=== PATIENT | female | born 1965 | race Caucasian/White ===

== ENCOUNTER → 2016-12-29 | Outpatient (CLI) | payer OTHER, MEDICARE ==
[~2016-12-29] MED LIST: ALBU8.5H INH; ASCO500C15 PO; BACL-1 PO; CALC600T12 PO; CARB1TAB41 PO; CETI10CA19 PO; CHOL100047 PO; CYCL-208 PO; DICY20TA54 PO; ESOM40CA24 PO; ESTR8.1S TOP; FERR-67 PO; GUAI600T PO; HYDR-3995 PO; IBUP200C62 PO; KETO10TA2 PO; LANS30CA58 PO; MOME17SP2 EA NOSTRIL; OXYC20TA PO; PAIN PUMP IV; PREG200C PO; PROM-51 PO; TRAZ-170 PO; VENL75TA4 PO; [UNRECOGNIZED DRUG - OTHER] PO
[2016-12-29 09:52] LABS: BASOPHILS % (AUTO) 0.3 % (0-2); EOSINOPHILS # (AUTO) 0.4 T/MM3 (0-0.5); EOSINOPHILS % (AUTO) 6.5 % (0-4); HCT - HEMATOCRIT 39.4 % (36-46); HGB - HEMOGLOBIN 13.4 GM/DL (12-16); IMMATURE GRANULOCYTE # (AUTO) 0.01 T/MM3 (0.00-0.03); IMMATURE GRANULOCYTE % (AUTO) 0.2 % (0.0-0.5); LYMPHOCYTES % (AUTO) 34.2 % (23-45); MEAN CORPUSCULAR HGB 33.3 UUG (26-34); MEAN CORPUSCULAR VOLUME 97.8 UM3 (80-100); MEAN PLATELET VOLUME 10.8 UM3 (9.4-12.4); MONOCYTES # (AUTO) 0.5 T/MM3 (0-0.8); NEUTROPHILS % (AUTO) 50.8 % (33-66); RED BLOOD COUNT 4.03 M/MM3 (4.00-5.20); WBC - WHITE BLOOD COUNT 5.9 T/MM3 (4.5-11.0)
[2016-12-29 10:02] LABS: ALBUMIN 3.5 G/DL (3.5-5.0); ALBUMIN/GLOBULIN RATIO 1.1 RATIO (1.1-2.2); ALKALINE PHOSPHATASE 124 U/L (38-126); ALT (SGPT) 24 U/L (9-52); ANION GAP 11 MEQ/L (5-15); AST (SGOT) 20 U/L (14-36); BUN/CREATININE RATIO 22 RATIO (6-26); CALCIUM 8.9 MG/DL (8.4-10.2); CHLORIDE 105 MEQ/L (98-107); CO2 - CARBON DIOXIDE 31 MEQ/L (22-30); CREATININE 0.5 MG/DL (0.7-1.2); GLOMERULAR FILTRATION RATE 130; GLUCOSE 97 MG/DL (65-110); POTASSIUM 3.9 MEQ/L (3.6-5); SODIUM 147 MEQ/L (134-144); TOTAL PROTEIN 6.7 G/DL (6.3-8.2)
[2016-12-29 10:10] LABS: IGA - IMMUNOGLOBULIN A 714.84 MG/DL (70-400); IGG - IMMUNOGLOBULIN G 693.56 MG/DL (700-1600); IGM - IMMUNOGLOBULIN M 25.63 MG/DL (40-230)
== END ==
LOC: LAB 09:18
PROVIDERS: ATTEND Internal Medicine Medical Oncology
DX: C90.00 Multiple myeloma not having achieved remission (principal)
CPT/HCPCS: 36415; 80053; 82232; 82784; 82785; 83883; 84155; 84165; 85025; 86334

== ENCOUNTER 2017-10-14 10:43 | Observation (INO) ==
--- OUTSIDE RECORDS SUMMARY | 2017-10-14 11:01 | External Medical Summary | Clinical Summary ---
:1965 Author Organization [facility] [place] Address [address] [place] [address] Phone Care Team Providers Name Role Phone Unavailable Primary Care Provider Unavailable Source Comments Some departments are not documenting in the electronic medical record. If you do not see the information that you expected, contact Release of Information in the Health Information Management department at [phone] for further assistance in locating additional records.[facility] [place] Allergies Active Allergy Reactions Severity Noted Date Comments Sulfur SEE COMMENTS 09/11/2013 Vaginal and Rectal itching Current Medications Prescription Sig. Disp. Refills Start Date End Date Status HYDROMORPHONE HCL Take by mouth as Active (DILAUDID PO) Needed. bupiv esomeprazole DR(+) Take 40 mg by Active (NEXIUM) 40 mg capsule mouth every morning. escitalopram (LEXAPRO) 20 Take 20 mg by Active mg tablet mouth daily. zolpidem CR(+) (AMBIEN CR) Take 12.5 mg by Active 12.5 mg tablet mouth at bedtime as needed. PROMETHAZINE HCL Take by mouth as Active (PROMETHAZINE PO) Needed. Fluticasone Furoate Apply 2 Sprays to Active (VERAMYST) 27.5 each nostril as mcg/actuation spsn directed daily. budesonide(+) (RHINOCORT Apply 1 [place] to Active AQUA) 32 mcg/actuation each nostril as nasal spray directed daily. cyclobenzaprine (FLEXERIL) Take 10 mg by Active 10 mg tablet mouth three times daily as needed. HYDROcodone-acetaminophen( Take 1 Tab by Active +) (LORTAB 10/500) 10-500 mouth every 6 mg tablet hours as needed. oxyCODone SR (OXYCONTIN) Take 20 mg by Active 20 mg tablet mouth every 12 hours carbidopa(+) (LODOSYN) 25 Take 25 mg by Active mg tab mouth daily. baclofen (LIORESAL) 10 mg Take 10 mg by Active tablet mouth three times daily. diazepam (VALIUM) 5 mg Take 5 mg by mouth Active tablet every 6 hours as needed. ascorbic acid (VITAMIN-C) Take 500 mg by Active 500 mg tablet mouth daily. bumetanide (BUMEX) 1 mg Take 1 mg by mouth Active tablet daily. ketorolac (TORADOL) 10 mg Take 10 mg by Active tablet mouth every 6 hours as needed. dicyclomine (BENTYL) 20 mg Take 20 mg by Active tablet mouth every 6 hours. Active Problems Problem Noted Date Vitamin D deficiency 10/22/2013 MGUS (monoclonal gammopathy of unknown significance) 09/11/2013 Social History Tobacco Use Types Packs/Day Years Used Date Never Assessed Sex Assigned at Date Recorded Not on file Last Filed Vital Signs Vital Sign Reading Time Taken Blood Pressure 140/80 10/16/2014 3:42 PM [employer] Pulse 77 09/11/2013 11:57 AM [employer] Temperature 36.5 C (97.7 F) 09/11/2013 11:57 AM [employer] Respiratory Rate - - Oxygen Saturation 91% 09/11/2013 11:57 AM [employer] Inhaled Oxygen Concentration - - Weight 80.3 kg (177 lb) 10/16/2014 3:42 PM [employer] Height 154.9 cm (5' 1") 10/16/2014 3:42 PM [employer] Body Mass Index 33.44 10/16/2014 3:42 PM [employer] Plan of Treatment Health Maintenance Due Date Last Done Comments HEPATITIS C SCREENING 1965 PHYSICAL (COMPREHENSIVE) EXAM 1971 PERTUSSIS VACCINE 1975 TETANUS VACCINE 1981 CERVICAL CANCER SCREENING 1994 BREAST CANCER SCREENING 2004 COLORECTAL CANCER SCREENING 2014 INFLUENZA VACCINE 05/08/2017
[2017-10-14] MEDS ORDERED: NALOXONE 0.4 MG/ML INJECTION IVP ONE (11:03)
[2017-10-14] MEDS ORDERED: NS 1,000 ML IV ONE (11:03)
[2017-10-14] MEDS: SALINE FLUSH 10ml SYRINGE IVF PRN ×2 (11:12→12:19)
--- NOTE | 2017-10-14 13:09 | Emergency Department Report ---
General Adult HPI - General Chief complaint: Medical Emergency Stated complaint: withdrawls Time Seen by Provider: 10/14/17 10:55 - History of Present Illness HPI narrative: 52-year-old female presents sedated via EMS. Patient's called for help as he felt like she was withdrawing and acting out with agitated symptoms. When EMS arrived, she was trying to bite them and fight with them and they ultimately gave her 50 mg of ketamine IM. She also required 2 mg of Ativan after that given IV. She takes significant narcotics for chronic pain from back surgeries. By best recollection after talking with her primary care provider, it sounds like she takes hydrocodone 10 mg tablet, 6 tablets per day. Oxycodone 20 mg tablet at bedtime. She also has a morphine pump of which dosing we're uncertain, but impression is that it is a fairly high dose. She does not respond to questioning, does withdraw to noxious stimuli. She is protecting her airway and does not require intubation at this time. Oxygen saturation 90-91% on room air. EMS felt that she responded better to the Ativan that she stated to the ketamine. They were given her medications by her , but there are no narcotic bottles in with those medications. states he thinks that she ran out yesterday as she sat in her recliner all day and did not get up except one trip to the bathroom. He states she's fairly secretive with her medications and does not let him see her take them and so he is uncertain how much or how often she is taking the pain medication. She did have an overdose approximately a year ago and required a stay in the ICU for recovery. - Related Data Home Medications Medication Instructions Recorded Confirmed Ketorolac Tromethamine 10 mg PO Q6H PRN #0 10/25/15 10/14/17 Lansoprazole 30 mg PO DAILY #0 10/25/15 10/14/17 Venlafaxine [Effexor] 150 mg PO AM #0 10/25/15 10/14/17 Cetirizine HCl [Zyrtec] 10 mg PO DAILY #0 10/06/16 10/14/17 Mometasone Furoate [Nasonex] 2 spray EA NOSTRIL DAILY #0 10/06/16 10/14/17 ondansetron HCl 8 mg tablet 8 mg PO Q8H PRN 07/26/17 10/14/17 trazodone 100 mg tablet 100 mg PO HS tab 07/26/17 10/14/17 Baclofen [Lioresal] 10 mg PO TID PRN 10/14/17 10/14/17 Dicyclomine [Bentyl] 20 mg PO QID 10/14/17 10/14/17 Guaifenesin [Mucinex] 400 mg PO PRN PRN 10/14/17 10/14/17 Hydrocortisone [Procto-Med Hc] 1 applicatio TOP PRN 10/14/17 10/14/17 Lactobacillus Acidophilus 1 each PO DAILY 10/14/17 10/14/17 [Probiotic] Meclizine [Antivert] 25 mg PO PRN 10/14/17 10/14/17 Melatonin/Pyridoxine HCl (B6) 10 mg PO HS 10/14/17 10/14/17 [Melatonin 10 mg Tablet] Oxycodone CR [Oxycontin] 20 mg PO TID PRN 10/14/17 10/14/17 Ranitidine [Zantac] 150 mg PO PRN 10/14/17 10/14/17 Venlafaxine [Effexor] 75 mg PO HS 10/14/17 10/14/17 Previous Rx's Medication Instructions Recorded carbidopa ER 25 mg-levodopa 100 mg 1 tab PO TID #450 tab 07/26/17 tablet,extended release Lyrica (pregabalin) 200 mg capsule 200 mg PO BID #60 cap 08/16/17 Allergies Allergy/AdvReac Type Severity Reaction Status Date / Time gabapentin Allergy Severe SWELLING Verified 10/14/17 11:12 adhesive Allergy Unknown Verified 10/14/17 11:12 Sulfa (Sulfonamide Allergy Unknown vaginal Verified 10/14/17 11:12 Antibiotics) and rectal itching Review of Systems Limitations: ROS unobtainable due to patient's medical condition PFSH Patient Stated Medical History Peripheral Neuropathy Yes Heart Murmur Yes Asthma Yes Bronchitis Yes Pneumonia Yes Sleep Apnea Yes Gastroesophageal Reflux Yes Disease Other GI Yes: IBS Other Hematologic Yes: MULTIPLE MYELOMA Other Musculoskeletal Yes: NERVE STIMULATOR PLACEMENT MRSA Yes: IN BREASTS-2016 Shingles Yes Other Infectious Yes: MOHS EXCISION Other Yes: Chronic pain Depression Yes Surgical History: 1. Tonsillectomy in 1982 or 1983 at [place], [place]. 2. Appendectomy in 1982 or 1983 at [facility] at [place], [place]. 3. Right carpal tunnel release operation in [address] An at [facility] at [place], [place]. 4. Primary section in 1988 at [facility] at [place], [place]. 5. Repeat in 1992 at [facility] at [place], [place]. 6. Operation at [facility] in 2001 or [address] [facility] at [place], [place]. 7. Laparoscopic cholecystectomy operation in May [address] Wu at [facility] at [place], [place]. 8. Operation at back in July 2005 at the [facility] at [place], [place]. 9. Total abdominal hysterectomy and left salpingo-oophorectomy in May [address] Denton at [facility] at [place], [place]. 10. Redo L4 and L5 laminectomies and L5-S1 interbody and instrumented fusion in September [address] Russell Slaetr at the [facility] at [place], [place]. 11. Esophagogastroduodenoscopy with biopsies on 02/07/[address] Cali at [facility] at [place], [place]. CT test study was negative. Duodenal biopsy showed mild chronic duodenitis. 12. [address] nerve stimulator at back, operations to revise nerve stimulator and then operation to place pain pump at right lower quadrant of abdomen in 2007 at the [facility] at [place], [place]. 13. Laparoscopic gastric bypass for weight loss operation in June [address] Mario Alberto Archuleta at [facility] at [place], [place]. 14. Turbinoplasty at the nose in December [address] Kate at his office at [place], [place]. 15. Septoplasty and bilateral inferior turbinoplasty on 03/25/[address] Augustin Kate at [facility] at [place], [place]. Postoperative diagnoses were chronic sinusitis, septal deviation and turbinate hypertrophy. 16. Bronchoscopy with biopsies on 10/29/2013. The patient cannot recall where this was performed. 17. Replacement of pain pump at right lower quadrant of abdomen in June 2015 at [facility] [place], [place]. 18. 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 Whitlock at [facility] at [place], [place]. 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 19. Incision and drainage with Pulsavac and sharp debridement of right and left breasts and suture removal at left ala and left lateral face on 05/15/[address] Whitlock at [facility] at [place], [place]. One postoperative diagnosis was open wounds at left and right breasts status post incision and drainage of MRSA abscesses. 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 - Social History Smoking status: Current every day smoker Substance use type: opiates, painkillers Physical Exam - Limitations Limitations: altered mental status - General General appearance: obtunded - Normal Exams: Head:: Normocephalic without trauma Chest/Respirations:: Clear all dixon, with good airflow, and symmetry bilaterally Cardiovascular:: Regular rate and rhythm, without murmur or gallop, Pulses 2+ all extremities, capillary refill, <2 seconds all extremities Abdomen:: Bowel sounds positive, soft, non-tender, non-distended, no hepatosplenomegaly, masses or bruits noted - Neurological Exam Neurological exam: Present: reflexes normal. Absent: alert, oriented X3 Course Vital Signs Temperature 98.6 F 10/14/17 10:43 Pulse Rate 91 10/14/17 10:43 Respiratory Rate 15 10/14/17 10:43 Blood Pressure 135/84 10/14/17 10:43 Pulse Oximetry 100 10/14/17 10:43 Temperature 98.6 F 10/14/17 10:43 Pulse Rate 80 10/14/17 12:30 Respiratory Rate 24 10/14/17 12:30 Blood Pressure 135/84 10/14/17 10:43 Pulse Oximetry 91 10/14/17 12:30 Medical Decision Making - MDM Narrative Medical decision making narrative: Iv placed by EMS. Fluids continued with 1 liter NS bolus. Pt evaluated and vitals reasonable. She did not respond to normal stimulus, required noxious stimuli to give any response, and then fell immediately back to sleep. 0.4mg Narcan given and pt became agitated until it wore off. Pupils were dilated and sluggish, but responsive equally to light. She began speaking and singing nonsense words. She seemed to be getting more agitated and was given 1 mg of Ativan IV. Labs ordered. CBC CMP within reason, urine drug screen was positive for opiates /oxycodone. CT head is negative as is CT C-spine. Patient is still somnolent and calm at this time. I spoke with hospitalist and discussed the case. Patient is appropriate for admission and will be placed ICU observation. - Lab Data Result diagrams: 10/14/17 11:04 10/14/17 11:04 Lab Results 10/14/17 10/14/17 10/14/17 Range/Units 11:00 11:04 11:04 WBC 6.2 (4.5-11.0) T/MM3 RBC 4.21 (4.00-5.20) M/MM3 Hgb 13.8 (12-16) GM/DL Hct 40.6 (36-46) % MCV 96.4 (80-100) UM3 MCH 32.8 (26-34) UUG MCHC 34.0 (31-37) GM/DL RDW Std Deviation 43.0 (36.9-50.2) FL Plt Count 129 L (130-400) T/MM3 MPV 11.9 (9.4-12.4) UM3 Immature Gran % (Auto) 0.2 (0.0-0.5) % Neut % (Auto) 67.3 H (33-66) % Lymph % (Auto) 22.7 L (23-45) % Wayne % (Auto) 9.4 H (0-9.0) % Eos % (Auto) 0.2 (0-4) % Baso % (Auto) 0.2 (0-2) % Neut # (Auto) 4.2 (1.8-7.7) T/MM3 Lymph # (Auto) 1.4 (1-4.8) T/MM3 Wayne # (Auto) 0.6 (0-0.8) T/MM3 Eos # (Auto) 0.0 (0-0.5) T/MM3 Baso # (Auto) 0.0 (0-0.2) T/MM3 Abs Immat Gran (auto) 0.01 (0.00-0.03) T/MM3 APTT (24-36) SEC ABG pH 7.580 H (7.350-7.450) ABG pCO2 27 L (34-45) MMHG ABG pO2 82 (80-100) MMHG ABG HCO3 25 (22-26) MEQ/L ABG Total CO2 26.1 (23-27) MEQ/L ABG O2 Saturation 98.0 (95.0-98.0) % ABG Base Excess 4.2 H (-2.0-2.0) MMOL/L O2 Delivery Method Room air FiO2 % 21 Turbidity < 20 (0-20) Sodium 145 H (134-144) MEQ/L Potassium 3.9 (3.6-5) MEQ/L Chloride 108 H (98-107) MEQ/L Carbon Dioxide 28 (22-30) MEQ/L Anion Gap 9 (5-15) MEQ/L BUN 10.0 (7-17) MG/DL Creatinine 0.5 L (0.7-1.2) MG/DL GFR Calculation 129 BUN/Creatinine Ratio 20 (6-26) RATIO Glucose 102 (65-110) MG/DL Calculated Osmolality 278 (261-280) MOSM/KG Calcium 9.2 (8.4-10.2) MG/DL Total Bilirubin 0.70 (0.20-1.30) MG/DL Icterus Index < 2 (0-7) AST 32 (14-36) U/L ALT 38 (9-52) U/L Alkaline Phosphatase 163 H (38-126) U/L Ammonia < 9 L (9-33) UMOL/L Creatine Kinase 58 (30-135) U/L Troponin I < 0.012 (0-0.12) ng/ml Total Protein 7.2 (6.3-8.2) G/DL Albumin 3.8 (3.5-5.0) G/DL Globulin 3.4 (2.4-3.6) G/DL Albumin/Globulin Ratio 1.1 (1.1-2.2) RATIO TSH 1.05 (0.47-4.68) MIU/L Specimen Hemolysis < 15 (0-25) Ur Collection Type Urine Color (YELLOW) Urine Clarity Urine pH (5.0-8.0) Ur Specific [place] (1.015-1.025) Urine Protein (NEGATIVE) Urine Glucose (UA) (NEGATIVE) Urine Ketones (NEGATIVE) Urine Occult Blood (NEGATIVE) Urine Nitrate (NEGATIVE) Urine Bilirubin (NEGATIVE) Urine Urobilinogen (NORMAL) EU/DL Ur Leukocyte Esterase (NEGATIVE) Urinalysis Comment Urine Test (Negative) Salicylates < 1.0 L (2-20) MG/DL Urine Opiates Screen ng/mL Ur Oxycodone Screen ng/mL Urine Methadone Screen ng/mL Ur Propoxyphene Screen ng/mL Acetaminophen < 10 L (10-30) UG/ML Ur Barbiturates Screen ng/mL U Tricyclic Antidepress ng/mL Ur Phencyclidine Scrn ng/mL Ur Amphetamines Screen ng/mL U Methamphetamines Scrn ng/mL U Benzodiazepines Scrn ng/mL Urine Cocaine Screen ng/mL U Cannabinoids Screen ng/mL Ur Drug Screen Confirm Alcohol, Quantitative <10 (<10) MG/DL 10/14/17 10/14/17 10/14/17 Range/Units 11:04 11:36 11:36 WBC (4.5-11.0) T/MM3 RBC (4.00-5.20) M/MM3 Hgb (12-16) GM/DL Hct (36-46) % MCV (80-100) UM3 MCH (26-34) UUG MCHC (31-37) GM/DL RDW Std Deviation (36.9-50.2) FL Plt Count (130-400) T/MM3 MPV (9.4-12.4) UM3 Immature Gran % (Auto) (0.0-0.5) % Neut % (Auto) (33-66) % Lymph % (Auto) (23-45) % Wayne % (Auto) (0-9.0) % Eos % (Auto) (0-4) % Baso % (Auto) (0-2) % Neut # (Auto) (1.8-7.7) T/MM3 Lymph # (Auto) (1-4.8) T/MM3 Wayne # (Auto) (0-0.8) T/MM3 Eos # (Auto) (0-0.5) T/MM3 Baso # (Auto) (0-0.2) T/MM3 Abs Immat Gran (auto) (0.00-0.03) T/MM3 APTT 34.7 (24-36) SEC ABG pH (7.350-7.450) ABG pCO2 (34-45) MMHG ABG pO2 (80-100) MMHG ABG HCO3 (22-26) MEQ/L ABG Total CO2 (23-27) MEQ/L ABG O2 Saturation (95.0-98.0) % ABG Base Excess (-2.0-2.0) MMOL/L O2 Delivery Method FiO2 % Turbidity (0-20) Sodium (134-144) MEQ/L Potassium (3.6-5) MEQ/L Chloride (98-107) MEQ/L Carbon Dioxide (22-30) MEQ/L Anion Gap (5-15) MEQ/L BUN (7-17) MG/DL Creatinine (0.7-1.2) MG/DL GFR Calculation BUN/Creatinine Ratio (6-26) RATIO Glucose (65-110) MG/DL Calculated Osmolality (261-280) MOSM/KG Calcium (8.4-10.2) MG/DL Total Bilirubin (0.20-1.30) MG/DL Icterus Index (0-7) AST (14-36) U/L ALT (9-52) U/L Alkaline Phosphatase (38-126) U/L Ammonia (9-33) UMOL/L Creatine Kinase (30-135) U/L Troponin I (0-0.12) ng/ml Total Protein (6.3-8.2) G/DL Albumin (3.5-5.0) G/DL Globulin (2.4-3.6) G/DL Albumin/Globulin Ratio (1.1-2.2) RATIO TSH (0.47-4.68) MIU/L Specimen Hemolysis (0-25) Ur Collection Type Urine, catheter Urine Color Yellow (YELLOW) Urine Clarity Clear Urine pH 8.5 A (5.0-8.0) Ur Specific [place] 1.010 L (1.015-1.025) Urine Protein Trace A (NEGATIVE) Urine Glucose (UA) Negative (NEGATIVE) Urine Ketones 1+ A (NEGATIVE) Urine Occult Blood Trace-intact (NEGATIVE) Urine Nitrate Negative (NEGATIVE) Urine Bilirubin Negative (NEGATIVE) Urine Urobilinogen 2.0 (NORMAL) EU/DL Ur Leukocyte Esterase Negative (NEGATIVE) Urinalysis Comment Microscopic not ind. Urine Test Negative (Negative) Salicylates (2-20) MG/DL Urine Opiates Screen ng/mL Ur Oxycodone Screen ng/mL Urine Methadone Screen ng/mL Ur Propoxyphene Screen ng/mL Acetaminophen (10-30) UG/ML Ur Barbiturates Screen ng/mL U Tricyclic Antidepress ng/mL Ur Phencyclidine Scrn ng/mL Ur Amphetamines Screen ng/mL U Methamphetamines Scrn ng/mL U Benzodiazepines Scrn ng/mL Urine Cocaine Screen ng/mL U Cannabinoids Screen ng/mL Ur Drug Screen Confirm Alcohol, Quantitative (<10) MG/DL 10/14/17 10/14/17 Range/Units 11:36 11:36 WBC (4.5-11.0) T/MM3 RBC (4.00-5.20) M/MM3 Hgb (12-16) GM/DL Hct (36-46) % MCV (80-100) UM3 MCH (26-34) UUG MCHC (31-37) GM/DL RDW Std Deviation (36.9-50.2) FL Plt Count (130-400) T/MM3 MPV (9.4-12.4) UM3 Immature Gran % (Auto) (0.0-0.5) % Neut % (Auto) (33-66) % Lymph % (Auto) (23-45) % Wayne % (Auto) (0-9.0) % Eos % (Auto) (0-4) % Baso % (Auto) (0-2) % Neut # (Auto) (1.8-7.7) T/MM3 Lymph # (Auto) (1-4.8) T/MM3 Wayne # (Auto) (0-0.8) T/MM3 Eos # (Auto) (0-0.5) T/MM3 Baso # (Auto) (0-0.2) T/MM3 Abs Immat Gran (auto) (0.00-0.03) T/MM3 APTT (24-36) SEC ABG pH (7.350-7.450) ABG pCO2 (34-45) MMHG ABG pO2 (80-100) MMHG ABG HCO3 (22-26) MEQ/L ABG Total CO2 (23-27) MEQ/L ABG O2 Saturation (95.0-98.0) % ABG Base Excess (-2.0-2.0) MMOL/L O2 Delivery Method FiO2 % Turbidity (0-20) Sodium (134-144) MEQ/L Potassium (3.6-5) MEQ/L Chloride (98-107) MEQ/L Carbon Dioxide (22-30) MEQ/L Anion Gap (5-15) MEQ/L BUN (7-17) MG/DL Creatinine (0.7-1.2) MG/DL GFR Calculation BUN/Creatinine Ratio (6-26) RATIO Glucose (65-110) MG/DL Calculated Osmolality (261-280) MOSM/KG Calcium (8.4-10.2) MG/DL Total Bilirubin (0.20-1.30) MG/DL Icterus Index (0-7) AST (14-36) U/L ALT (9-52) U/L Alkaline Phosphatase (38-126) U/L Ammonia (9-33) UMOL/L Creatine Kinase (30-135) U/L Troponin I (0-0.12) ng/ml Total Protein (6.3-8.2) G/DL Albumin (3.5-5.0) G/DL Globulin (2.4-3.6) G/DL Albumin/Globulin Ratio (1.1-2.2) RATIO TSH (0.47-4.68) MIU/L Specimen Hemolysis (0-25) Ur Collection Type Urine Color (YELLOW) Urine Clarity Urine pH (5.0-8.0) Ur Specific [place] (1.015-1.025) Urine Protein (NEGATIVE) Urine Glucose (UA) (NEGATIVE) Urine Ketones (NEGATIVE) Urine Occult Blood (NEGATIVE) Urine Nitrate (NEGATIVE) Urine Bilirubin (NEGATIVE) Urine Urobilinogen (NORMAL) EU/DL Ur Leukocyte Esterase (NEGATIVE) Urinalysis Comment Urine Test (Negative) Salicylates (2-20) MG/DL Urine Opiates Screen Positive ng/mL Ur Oxycodone Screen Positive ng/mL Urine Methadone Screen Negative ng/mL Ur Propoxyphene Screen Negative ng/mL Acetaminophen (10-30) UG/ML Ur Barbiturates Screen Negative ng/mL U Tricyclic Antidepress Negative ng/mL Ur Phencyclidine Scrn Negative ng/mL Ur Amphetamines Screen Negative ng/mL U Methamphetamines Scrn Negative ng/mL U Benzodiazepines Scrn Negative ng/mL Urine Cocaine Screen Negative ng/mL U Cannabinoids Screen Negative ng/mL Ur Drug Screen Confirm Sent out Alcohol, Quantitative (<10) MG/DL Disposition Clinical Impression: Narcotic overdose Disposition: [place] [facility] [place]: Stable Prescriptions: No Action Lansoprazole 30 mg PO DAILY #0 Oxycodone CR [Oxycontin] 20 mg PO TID PRN PRN Reason: Pain Venlafaxine [Effexor] 75 mg PO HS Dicyclomine [Bentyl] 20 mg PO QID Hydrocortisone [Procto-Med Hc] 1 applicatio TOP PRN Ranitidine [Zantac] 150 mg PO PRN Baclofen [Lioresal] 10 mg PO TID PRN PRN Reason: Prn Orders Melatonin/Pyridoxine HCl (B6) [Melatonin 10 mg Tablet] 10 mg PO HS Meclizine [Antivert] 25 mg PO PRN Lactobacillus Acidophilus [Probiotic] 1 each PO DAILY Guaifenesin [Mucinex] 400 mg PO PRN PRN PRN Reason: Cough Venlafaxine [Effexor] 150 mg PO AM #0 Ketorolac Tromethamine 10 mg PO Q6H PRN #0 PRN Reason: migraines Mometasone Furoate [Nasonex] 2 spray EA NOSTRIL DAILY #0 Cetirizine HCl [Zyrtec] 10 mg PO DAILY #0 trazodone 100 mg tablet 100 mg PO HS tab ondansetron HCl 8 mg tablet 8 mg PO Q8H PRN PRN Reason: Nausea carbidopa ER 25 mg-levodopa 100 mg tablet,extended release 1 tab PO TID #450 tab Lyrica (pregabalin) 200 mg capsule 200 mg PO BID #60 cap Referrals: Tanisha Alejo MD [Family Provider] - Time of Disposition: 13:23 - Seen By: physician
[2017-10-14] MEDS ORDERED: NALOXONE 0.4 MG/ML INJECTION IVP PRN (15:58)
[2017-10-14] MEDS ORDERED: KETOROLAC 15 MG/ML INJECTION IVP PRN (16:04)
[2017-10-14] MEDS ORDERED: ONDANSETRON 4 MG/2 ML INJECTION IVP PRN (16:05)
--- NOTE | 2017-10-14 16:13 | History & Physical Report ---
History of Present Illness Date: 10/14/17 Chief complaint: AMS HPI: Nuris is a 52 yo female with complex medical history. She was sent to the ER by EMS today due to impaired mental status. She does take quite a lot of medications for chronic pain, and reportedly has an implantable morphine pump as well. She is followed by for her pain management, and by Dr. Olguin for peripheral neuropathy. She was agitated and uncooperative with EMS and the ER. She did get Ativan and Ketamine by EMS, and required Ativan in the ED. It appears Ativan was more helpful than the Ketamine. did report that pt. is fairly secretive about her meds, so he has no idea what/how much she has taken. I have reviewed her records at length. She is noted to have concern for unintentional weight loss. She did undergo a colonoscopy by Dr. Cali in Aug 2017 due to this weight loss. He was not able to advance scope beyond mid-way in the ascending colon. She did undergo a polypectomy at that time which did not reveal malignancy. She is under the care of Dr. 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 No active disease is felt to be present. I did see patient in ICU. She opens eyes and looks at me. Mumbles when I ask her questions, but does not provide clear responses. She does follow some commands and does not demonstrate focal weakness. She does remain fairly sedate , breathing w/o difficulty. MD: The patient was seen by me in the ICU. Her and mother are in the room. She is quite sleepy. Her reports that the last time he saw her up and around was Sunday afternoon. He became more worried when he couldn't arouse her today and he has not been able to get her to eat or drink anything since Sunday. He does not think she's been up to go to the bathroom since Sunday. She is unable to contribute much information. Her relays that she had gastric bypass surgery and lost a bunch of weight and does not think her pain medications were decreased after the weight loss. Her mother agrees that she is overmedicated. Review of Systems ROS unobtainable: due to mental status Past Medical History IBS Multiple Myeloma- IgA [place] (Dr. River) Asthma GERD MDD/DELLA Chronic Pain- Dr. Irizarry Narcotic dependence Peripheral Neuropathy Drug OD MRSA abscesses both breasts. Surgical History: 1. Tonsillectomy in [address] [facility] at [place], [place]. 2. Appendectomy in [address] [facility] at [place], [place]. 3. Right carpal tunnel release operation in [address] [facility] at [place], [place]. 4. Primary section in 1988 at [place], [place]. 5. Repeat in 1992 at [place], [place]. 6. Operation at [facility] in 2001 or 2002 at [facility] at [place], [place]. 7. Laparoscopic cholecystectomy operation in May [address] Wu at [facility] at [place], [place]. 8. Operation at [facility] in July 2005 at the [facility] at [place], [place]. 9. Total abdominal hysterectomy and left salpingo-oophorectomy in May [address] Denton at [facility] at [place], [place]. 10. Redo L4 and L5 laminectomies and L5-S1 interbody and instrumented fusion in September [address] Russell Slater at the [facility] at [place], [place]. 11. Esophagogastroduodenoscopy with biopsies on 02/07/[address] Cali at [facility] at [place], [place]. CT test study was negative. Duodenal biopsy showed mild chronic duodenitis. 12. [address] nerve stimulator at back, operations to revise nerve stimulator and then operation to place pain pump at right lower quadrant of abdomen in 2007 at the [facility] at [place], [place]. 13. Laparoscopic gastric bypass for weight loss operation in June [address] Mario Alberto Archuleta at [facility] at [place], [place]. 14. Turbinoplasty at the nose in December [address] Kate at his office at [place], [place]. 15. Septoplasty and bilateral inferior turbinoplasty on 03/25/[address] Augustin Kate at [facility] at [place], [place]. Postoperative diagnoses were chronic sinusitis, septal deviation and turbinate hypertrophy. 16. Bronchoscopy with biopsies on 10/29/2013. The patient cannot recall where this was performed. 17. Replacement of pain pump at right lower quadrant of abdomen in June 2015 at [facility] at [place], [place]. 18. 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 Whitlock at [facility] at [place], [place]. 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 19. Incision and drainage with Pulsavac and sharp debridement of right and left breasts and suture removal at left ala and left lateral face on 05/15/[address] Whitlock at [facility] at [place], [place]. One postoperative diagnosis was open wounds at left and right breasts status post incision and drainage of MRSA abscesses. 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 Family History Updates: UTO given sedation - Social History Smoking status: Current every day smoker Substance use type: painkillers, prescription drug Substance last used: unknown Household members: spouse service: No Current occupational status: unemployed Current residence: Apartment/Private Home Medications Home Medications Medication Instructions Recorded Confirmed Type Ketorolac Tromethamine 10 mg PO Q6H PRN #0 10/25/15 10/14/17 History Lansoprazole 30 mg PO DAILY #0 10/25/15 10/14/17 History Venlafaxine [Effexor] 150 mg PO AM #0 10/25/15 10/14/17 History Cetirizine HCl [Zyrtec] 10 mg PO DAILY #0 10/06/16 10/14/17 History Mometasone Furoate [Nasonex] 2 spray EA NOSTRIL DAILY #0 10/06/16 10/14/17 History ondansetron HCl 8 mg tablet 8 mg PO Q8H PRN 07/26/17 10/14/17 History trazodone 100 mg tablet 100 mg PO HS tab 07/26/17 10/14/17 History Baclofen [Lioresal] 10 mg PO TID PRN 10/14/17 10/14/17 History Dicyclomine [Bentyl] 20 mg PO QID 10/14/17 10/14/17 History Guaifenesin [Mucinex] 400 mg PO PRN PRN 10/14/17 10/14/17 History Hydrocortisone [Procto-Med Hc] 1 applicatio TOP PRN 10/14/17 10/14/17 History Lactobacillus Acidophilus 1 each PO DAILY 10/14/17 10/14/17 History [Probiotic] Meclizine [Antivert] 25 mg PO PRN 10/14/17 10/14/17 History Melatonin/Pyridoxine HCl (B6) 10 mg PO HS 10/14/17 10/14/17 History [Melatonin 10 mg Tablet] Oxycodone CR [Oxycontin] 20 mg PO TID PRN 10/14/17 10/14/17 History Ranitidine [Zantac] 150 mg PO PRN 10/14/17 10/14/17 History Venlafaxine [Effexor] 75 mg PO HS 10/14/17 10/14/17 History Allergies Allergy/AdvReac Type Severity Reaction Status Date / Time gabapentin Allergy Severe SWELLING Verified 10/14/17 11:12 adhesive Allergy Unknown Verified 10/14/17 11:12 Sulfa (Sulfonamide Allergy Unknown vaginal Verified 10/14/17 11:12 Antibiotics) and rectal itching Exam Vital Signs: Temperature 98.6 F 10/14/17 10:43 Pulse Rate 88 10/14/17 13:45 Respiratory Rate 13 10/14/17 13:45 Blood Pressure 148/75 H 10/14/17 13:33 Pulse Oximetry 96 10/14/17 13:45 Height/Weight/BMI: Weight 65.8 kg Comments: Gen: very somnolent. NAD. she is easily agitated with exam. Skin: warm and dry HEENT: NC/AT PERRL, EOMI, Sclera, lids and conjunctiva wnl. dryMM. OP clear. Neck: No JVD, Carotids 2+ without bruits Lungs: clear. No rales, rhonchi or wheezes CV: regular. No murmur, rub or gallop Abd: soft. +BS. NT/ND. She does not complain of abdominal pain to me. No guarding except for her generalized agitation with the exam. MS: No edema. Good strength and ROM Neuro: No focal deficits - Constitutional Present: mild distress, well nourished, well developed, disheveled, agitated. Absent: cooperative - Routine HEENT Exam Head: Present: normocephalic, atraumatic ENT: Present: mucous membranes dry, dentition normal Comments: pupils are 3mm bilaterally and reactive. - Routine Neck Exam Present: supple. Absent: JVD, carotid bruit - Routine Respiratory Exam Present: decreased breath sounds. Absent: accessory muscle use, dyspnea, rales , rhonchi, crackles - Routine Cardiovascular Exam Present: RRR, S1, S2, no murmur - Routine Abdominal Exam Present: soft, tenderness (Mid LUQ TTP x 2. Some guarding with palpation. No palpable masses or lesions. ), guarding. Absent: distended, firm, rigid - Routine Extremities Exam Present: no edema, non tender, full ROM. Absent: cyanosis, edema - Routine Skin Exam Present: intact, dry, warm - Routine Neurological Exam Present: altered mental status, moving all extremities. Absent: alert, oriented X3 No disconjugate gaze. Eyes are open and she is following me. Mutters responses to my questions. Hand Presser are equal, 3/5. Moving LE w/o difficulty. Will not open mouth to command. - Routine Psychiatric Exam Present: agitated. Absent: normal affect, normal thought process, cooperative, good insight, good judgment Results - Labs CBC & Chem 7: 10/14/17 11:04 10/14/17 11:04 - Impressions CT head- ok CT c-spine OK CXR- ok Assessment and Plan (1) Altered mental status Current visit: Yes Status: Acute Assessment and Plan: Impression: Altered mental Status Suspected Drug OD Chronic narcotic dependence/addiction Dilaudid pump implant Peripheral neuropathy H/O Gastric Bypass 2011 LUQ pain Dehydration R/O Mental health DO Chronic Multiple Myeloma, "smouldering". Plan: 10/14/16 Hold narcotics. She does have Dilaudid pump in place- PRN Narcan PRN low dose Toradol for pain. IVF for hydration. Check Iron studies and B vitamins due to gastric bypass hx. ETOH level was negative. Add IV PPI. Check CT for abdominal pain. K-tracks pulled- He sees Dr. Irizarry, Dr. Olguin. Uses Dilaudid pump, TID oxycontin, Lyrica. May need mental health evaluation. She is noted to have Sinemet- unclear on underlying diagnosis on that- will need further information when she is more awake. Repeat ABG now. Add LMWH for px. Repeat labs in AM. MD: the patient was examined by me. I attempted to interview her however she was unable stay focused and awake long enough to answer questions appropriately. Much of my information came from the . My exam was documented above. I have reviewed her labs, notes and imaging. I have reviewed the END USER SUPPORT SPECIALIST assessment and plan and agree with above. DVT Prophylaxis: Lovenox GI Prophylaxis: Protonix Resuscitation Status: Full Code - Time spent with patient Time with patient PN: 50 minutes - Physician Narrative Physician: Aishwarya Emery MD Narrative: Date: 10/14/17 Time: 1607 Hospital Course Summary Disclaimer: The visit summary below is not to be considered part of the above Progress Note. Hospital Course: Impression: Altered mental Status Suspected Drug OD Chronic narcotic dependence/addiction Dilaudid pump implant Peripheral neuropathy H/O Gastric Bypass 2010 LUQ pain Dehydration R/O Mental health DO Chronic Multiple Myeloma, "smouldering". Plan: 10/14/16 Hold narcotics. She does have Dilaudid pump in place- PRN Narcan PRN low dose Toradol for pain. IVF for hydration. Check Iron studies and B vitamins due to gastric bypass hx. ETOH level was negative. Add IV PPI. Check CT for abdominal pain. K-tracks pulled- He sees Dr. Irizarry, Dr. Olguin. Uses Dilaudid pump, TID oxycontin, Lyrica. May need mental health evaluation. She is noted to have Sinemet- unclear on underlying diagnosis on that- will need further information when she is more awake. Repeat ABG now. Add LMWH for px. Repeat labs in AM.
[2017-10-14] MEDS: D5-1/2NS 1,000 ML IV SCH (16:54)
[2017-10-14] MEDS: PANTOPRAZOLE 40 MG INJECTION IVP SCH ×2 (16:54→21:08)
[2017-10-14] MEDS: ENOXAPARIN 40 MG/0.4 ML INJECTION SQ SCH (16:54)
[2017-10-14] MEDS ORDERED: GUAIFENESIN 400MG TABLET PO PRN (17:50)
[2017-10-14] MEDS ORDERED: ONDANSETRON 8 MG TABLET PO PRN (17:50)
[2017-10-14] MEDS ORDERED: KETOROLAC 10 MG TABLET PO PRN (17:50)
[2017-10-14] MEDS ORDERED: MECLIZINE 25 MG TABLET PO PRN (18:00)
[2017-10-14] MEDS ORDERED: HYDRALAZINE 20 MG/ML INJECTION IVP PRN (18:25)
[2017-10-14] MEDS ORDERED: [UNRECOGNIZED DRUG - OTHER] PO SCH (21:00)
[2017-10-14] MEDS ORDERED: VENLAFAXINE 75 MG TABLET PO SCH (21:00)
[2017-10-14] MEDS ORDERED: TRAZODONE 100 MG TABLET PO SCH (21:00)
[2017-10-14] MEDS ORDERED: MELATONIN PO SCH (21:00)
[2017-10-14] MEDS ORDERED: PYRIDOXINE HCL PO SCH (21:00)
--- NOTE | 2017-10-14 21:04 | CT Scan Report ---
Indication: Abdominal pain, AMS CT abdomen pelvis wo con: Comparison: 08/28/2017 CT abdomen pelvis Technique: Patient scan without contrast from above the diaphragm to below the pubic symphysis utilizing dose reduction imaging technology and with reformatted sagittal and coronal image planes. Findings: Patient shows normal-sized heart with arteriosclerotic calcification in the coronary arteries. No significant cardiac decompensation suggested. No acute pulmonary abnormality. Patient showed postoperative changes of probable gastric bypass surgery. Gallbladder has also been removed. Liver, biliary tree, spleen, pancreas and adrenals are grossly normal. Patient shows shows nonobstructing stones in the right kidney largest measuring 8 mm. Visualized bowel demonstrates no obstruction or acute inflammatory change. Patient shows prior vascular clips in the lower abdomen and the and into the pelvis. Patient shows postoperative changes in the spine. There is also a generator in a intraspinal electrode identified. Bladder contour is unremarkable. No acute pelvic findings noted. Impression: 1. Prior surgical intervention into the abdomen and pelvis as well as postoperative changes of the L4-S1 lumbar fusion. 2. Nonobstructing stones in the right kidney 3. Findings communicated to ordering clinician by the V rad service on a callback basis. .
[2017-10-14] MEDS: DICYCLOMINE 20mg TABLET PO SCH (21:06)
--- NOTE | 2017-10-14 21:08 | CT Scan Report ---
Indication: mental status changes, fall CT head/brain wo con: Comparison: None Technique: Nonenhanced axial imaging provided with brain and bone window evaluation and dose reduction imaging technology. Findings: Patient showed no suggestion of acute findings such as hemorrhage, midline shift or mass effect. Ventricular size is within acceptable limits. No other acute intracranial findings are appreciated. No acute bony findings are noted. Sinuses were clear. Impression: 1. No acute intracranial process identified. 2. Findings indicated to ordering clinician by the V rad service on a callback basis. .
--- NOTE | 2017-10-14 21:12 | CT Scan Report ---
Indication: mental status change, fall CT cervical spine wo con: Comparison: No comparison Technique: Patient scanned without contrast with axial images with reformatted sagittal and coronal image planes. Findings: Patient showed mild degenerative changes in the lower cervical disc spaces where there are some hypertrophic bony arthropathy but no suggestion of acute fracture or malalignment or compromise to the canal diameter. Prevertebral soft tissues are unremarkable. Impression: 1. Mild hypertrophic and degenerative disc changes without suggestion of acute fracture or canal compromise. 2. Findings indicated to ordering clinician by the V rad service on a callback basis. .
--- NOTE | 2017-10-14 21:35 | XRay Report ---
Indication: mental status changes, hypoxemia XR chest 1V: Comparison: CT chest and 1717 Technique: Single AP portable upright chest Findings: Patient demonstrates normal heart, mediastinum and central vascularity. Lungs show no acute findings. No acute bony abnormality. Impression: Single portable chest showing no active cardiopulmonary findings. .
[2017-10-15] MEDS: D5-1/2NS 1,000 ML IV SCH ×2 (00:30→08:43)
[2017-10-15 01:40] VITALS: TEMP 98.3
[2017-10-15] MEDS ORDERED: NON-FORMULARY MEDICATION 1 EACH EACH (Cetirizine Hcl [Zyrtec] 10 MG) PO SCH (09:00)
[2017-10-15] MEDS ORDERED: LANSOPRAZOLE 30 MG PO SCH (09:00)
[2017-10-15] MEDS ORDERED: LACTOBACILLUS ACIDOPHILUS PO SCH (09:00)
[2017-10-15] MEDS ORDERED: CETIRIZINE 10 MG TABLET PO SCH (09:00)
[2017-10-15] MEDS ORDERED: NON-FORMULARY MEDICATION 1 EACH EACH (Mometasone Furoate [Nasonex] 2 SPRAY) EA NOSTRIL SCH (09:00)
[2017-10-15] MEDS ORDERED: VENLAFAXINE 75 MG TABLET PO SCH (09:00)
[2017-10-15] MEDS ORDERED: FLUTICASONE NASAL SPRAY 50mcg EA NOSTRIL SCH (09:00)
[2017-10-15] MEDS: PANTOPRAZOLE 40 MG INJECTION IVP SCH (09:52)
[2017-10-15] MEDS: DICYCLOMINE 20mg TABLET PO SCH (09:53)
[2017-10-15] MEDS: LACTOBACILLUS (15B cfu) CAPSULE PO SCH ×2 (09:54→13:35)
[2017-10-15] MEDS: ENOXAPARIN 40 MG/0.4 ML INJECTION SQ SCH (09:55)
[2017-10-15] MEDS ORDERED: DICYCLOMINE 20mg TABLET PO SCH (11:30)
[2017-10-15] MEDS ORDERED: DiphenhydrAMINE 50 MG/ML INJECTION IVP PRN (13:25)
[2017-10-15] MEDS: SALINE FLUSH 10ml SYRINGE IVF PRN (13:37)
[2017-10-15 15:04] VITALS: BMI 22.7
--- NOTE | 2017-10-15 15:38 | Discharge Summary ---
Discharge Information Date of admission: 10/14/17 13:38 Anticipated date of discharge: 10/15/17 Attending Physician: Rosibel Lechuga MD Primary care physician: Tanisha Alejo MD - Discharge Diagnosis (1) Altered mental status Status: Acute Altered mental Status Suspected Drug OD Chronic narcotic dependence/addiction Dehydration-POA Hypokalemia-10/15/17 Dilaudid pump implant Peripheral neuropathy H/O Gastric Bypass 2010 LUQ pain Dehydration R/O Mental health DO Chronic Multiple Myeloma, "smouldering". - Laboratory Labs: On admission white count 6.2, hemoglobin 13.8, and chemistries unremarkable. Ammonia was nondetectable; troponin <0.012. Arterial blood gas 7.58/27/82/25 on room air Urine drug screen positive for opiates and oxycodone. UA negative. Serum iron 67, TIBC 171, iron saturation 39, B-12 340, folic acid > 20, TSH 1.05 , B1 level pending at discharge 10/15/17 04:09 10/15/17 04:09 - Microbiology Blood cultures 2 negative at 24 hours - Radiology Radiology: Noncontrast CT of the head on admission demonstrated no acute intracranial process. Cervical spine CT on admission demonstrated mild hypertrophic and degenerative disc changes without acute fracture or spinal compromise. Chest x-ray on admission demonstrated no acute cardiopulmonary abnormality. CT of the abdomen and pelvis on 10/14/17 demonstrated prior abdominal surgeries, postoperative changes of L4-S1 lumbar fusion, nonobstructing stones in the right kidney, but no acute abdominal/pelvic pathology. History of Present Illness HPI: Nuris is a 52 yo female with complex medical history. She was sent to the ER by EMS today due to impaired mental status. She does take quite a lot of medications for chronic pain, and reportedly has an implantable morphine pump as well. She is followed by for her pain management, and by Dr. Olguin for peripheral neuropathy. She was agitated and uncooperative with EMS and the ER. She did get Ativan and Ketamine by EMS, and required Ativan in the ED. It appears Ativan was more helpful than the Ketamine. did report that pt. is fairly secretive about her meds, so he has no idea what/how much she has taken. I have reviewed her records at length. She is noted to have concern for unintentional weight loss. She did undergo a colonoscopy by Dr. Cali in Aug 2017 due to this weight loss. He was not able to advance scope beyond mid-way in the ascending colon. She did undergo a polypectomy at that time which did not reveal malignancy. She is under the care of Dr. 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 No active disease is felt to be present. I did see patient in ICU. She opens eyes and looks at me. Mumbles when I ask her questions, but does not provide clear responses. She does follow some commands and does not demonstrate focal weakness. She does remain fairly sedate , breathing w/o difficulty. MD: The patient was seen by me in the ICU. Her and mother are in the room. She is quite sleepy. Her reports that the last time he saw her up and around was Sunday afternoon. He became more worried when he couldn't arouse her today and he has not been able to get her to eat or drink anything since Sunday. He does not think she's been up to go to the bathroom since Sunday. She is unable to contribute much information. Her relays that she had gastric bypass surgery and lost a bunch of weight and does not think her pain medications were decreased after the weight loss. Her mother agrees that she is overmedicated. Hospital Course This is a general summary of the patient's hospital course. For more details refer to the complete medical record. Hospital course: Impression: Altered mental Status Suspected Drug OD Chronic narcotic dependence/addiction Hypokalemia-10/15/17 Dilaudid pump implant Peripheral neuropathy H/O Gastric Bypass 2011 LUQ pain Dehydration R/O Mental health DO Chronic Multiple Myeloma, "smouldering". Plan: Mrs. Pringle was admitted to the ICU with altered mental status and probable dehydration due to impaired oral intake for 36 hours prior to presentation to the hospital. All oral narcotics were held but her Dilaudid pump was continued. PRN Narcan was available but was not needed. By the morning of 10/15 the patient was easily arousable and responding to questions appropriately. The patient denied pain on the eighth despite having no oral pain medications for over 48 hours. Case was reviewed with Dr. Irizarry who indicated intent to discontinue oral pain medications and requested that patient follow up with him in the office as soon as possible. Given adequate pain control at present OxyContin will continue to be held and if needed can be resumed at twice a day maximum pending follow-up with her paint laboratory technician. She was seen by PT/OT and felt to be stable for discharge provided someone was with her 24 hours a day initially as she remains a little shaky. IV fluids were administered for dehydration with slight drop in hemoglobin. Potassium replacement was necessary on 10/15 following hydration. Anemia workup was unremarkable. Family felt stable to discharging home late in the day on 10/15/17 indicating that someone would be at home with the patient at all times. Her is going to manage narcotics pending follow-up with Dr. Irizarry. On 10/15 the patient denied pain or dyspnea. She was nonspecific about what she last remembers although hinted that she remembered her being off work last and Sunday. The patient appeared comfortable and her speech was fluent. Respirations were nonlabored with good airflow and clear breath sounds. Abdomen is benign. Stable for discharge at this time with plans to follow-up with Dr. Alejo in approximately one week and Dr. Irizarry assuming his appointment can be scheduled. Time spent with patient: discharge greater than 30 minutes Discharge Plan - Med Rec/Dispo Referrals/Follow Up: Tanisha Alejo MD [Family Provider] - BAYLEE IRIZARRY MD [Physician Nonstaff] - Prescriptions: Continue Lansoprazole 30 mg PO DAILY #0 Venlafaxine [Effexor] 75 mg PO HS Dicyclomine [Bentyl] 20 mg PO QID Hydrocortisone [Procto-Med Hc] 1 applicatio TOP PRN Ranitidine [Zantac] 150 mg PO PRN Baclofen [Lioresal] 10 mg PO TID PRN PRN Reason: Prn Orders Melatonin/Pyridoxine HCl (B6) [Melatonin 10 mg Tablet] 10 mg PO HS Meclizine [Antivert] 25 mg PO PRN Lactobacillus Acidophilus [Probiotic] 1 each PO DAILY Guaifenesin [Mucinex] 400 mg PO PRN PRN PRN Reason: Cough Venlafaxine [Effexor] 150 mg PO AM #0 Ketorolac Tromethamine 10 mg PO Q6H PRN #0 PRN Reason: migraines Mometasone Furoate [Nasonex] 2 spray EA NOSTRIL DAILY #0 Cetirizine HCl [Zyrtec] 10 mg PO DAILY #0 trazodone 100 mg tablet 100 mg PO HS tab ondansetron HCl 8 mg tablet 8 mg PO Q8H PRN PRN Reason: Nausea carbidopa ER 25 mg-levodopa 100 mg tablet,extended release 1 tab PO TID #450 tab Lyrica (pregabalin) 200 mg capsule 200 mg PO BID #60 cap Changed Oxycodone CR [Oxycontin] 20 mg PO BID PRN #0 PRN Reason: Pain - Disposition 01 Discharged Home, Self-Care - Dismissal Complete Discharge Instructions are:: Complete
[2017-10-15 16:08] VITALS: RESP 27
[2017-10-15 16:14] VITALS: BP 153/70; PULSE 91; O2SAT 96
[2017-10-15] MEDS ORDERED: MELATONIN 5 MG TABLET PO SCH (21:00)
[2017-10-16] MEDS ORDERED: VENLAFAXINE 75 MG TABLET PO SCH (08:00)
== END 2017-10-15 16:20 | disposition home or self-care (01) ==
LOC: CCU 10:43 → ED 10:43 → SUATTDRO 13:38 → CCU 13:50
PROVIDERS: ADMIT Internal Medicine Cardiovascular Disease; ATTEND Internal Medicine